=== PATIENT | male | born 1995 | race Asian ===

== ENCOUNTER 2018-08-31 11:53 | Inpatient (IN) | payer OTHER ==
[2018-08-31] MEDS ORDERED: NS 0.9% 1000 ML* 1,000 ML IV ONE (13:13)
[2018-08-31 13:43] LABS: Hematocrit 50 % (42-52); Mean Corpuscular HGB Conc 34 g/dl (31-36); Mean Corpuscular Hemoglobin 31 pg (27-31); Mean Corpuscular Volume 91 fL (80-94); Mean Platelet Volume 8.2 um3 (7.4-10.4); Platelet Count 97 10^3/ul (150-450); Red Blood Count 5.49 10^6/ul (4.00-5.40); Red Cell Distribution Width 13 % (10.5-15); White Blood Count 1.5 10^3/ul (3.5-10.8)
[2018-08-31] MEDS ORDERED: Acetaminophen TAB* 325 MG PO ONE (13:44)
[2018-08-31] MEDS ORDERED: Al Hydrox/Mg Hydrox/Simet LIQ* 30 ML UDC PO PRN (14:00)
[2018-08-31] MEDS ORDERED: Albuterol 2.5 MG/3 ML NEB.SOL* (0.083%) INH PRN (14:00)
[2018-08-31] MEDS ORDERED: Ondansetron INJ* 2 MG/ML VIAL IV PRN (14:00)
[2018-08-31] MEDS ORDERED: Acetaminophen TAB* 325 MG PO PRN (14:00)
[2018-08-31 14:20] LABS: ABS Basophils 0 10^3/ul (0-0.2); ABS Eosinophils 0 10^3/ul (0-0.6); ABS Lymphocytes 0.6 10^3/ul (1.0-4.8); ABS Monocytes 0.2 10^3/ul (0-0.8); ABS Neutrophils 0.7 10^3/ul (1.5-7.7); ABS Nucleated RBC 0 10^3/ul; Eosinophil % 0.7 % (0-6); Lymphocyte % 37.5 % (25-47); Nucleated Red Blood Cells % 0.6
--- NOTE | 2018-08-31 14:29 | RAD ---
Indication: Chest pain. Single frontal view of the chest performed at 1400 hours was reviewed. No prior study. No mediastinal shift is noted. Heart is of normal size and configuration. Lung horowitz appear clear. IMPRESSION: NO ACTIVE CARDIOPULMONARY DISEASE IS NOTED.
[2018-08-31] MEDS: NS 0.9% 1000 ML* 1,000 ML IV SCH ×2 (15:23→23:22)
[2018-08-31 15:46] LABS: RBC Parasite Smear No Parasites Seen (No Parasite)
--- NOTE | 2018-08-31 18:30 | HP ---
CC: [facility]* ADMISSION HISTORY AND PHYSICAL: DATE OF ADMISSION: 08/31/18 PATIENT OF ADMITTING HOSPITALIST: Dr. Maryam Damico.* (DICTATED BY ROSEY GARCIA) PRIMARY INFECTIOUS DISEASE PARALEGAL INTERNSHIP: Dr. Titus Mora. PRIMARY CARE PHYSICIAN: [facility]. CHIEF COMPLAINT: Fever and fatigue. HISTORY OF PRESENT ILLNESS: Mr. 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 The patient had a planned trip and spent about a week in [facility] and came back on 08/23/18. He started getting sick on the trip back, described it as generalized fatigue with accompanied fever and chills that became progressively worse, for which he went to see a doctor on 08/27/18. The patient had 2 other classmates that accompanied him to [facility] and had similar symptoms and both of them tested positive for dengue fever. The patient was followed by the [facility] office and was seen by Dr. Mora there. He had laboratory workup on a daily basis for the past 3 days showing evidence of neutropenia with decreased white count every day. He continued to have fever and chills as well as sore throat and occasional dysphagia, but denied any difficulty swallowing, nausea, vomiting, headache, chest pain, or any other associated symptoms. He also had a breakout of the rash that started on his extremities and became more prominent to his groin, described it as pruritic rash only when he scratched it. However, denies any heat or cold intolerance. He had malaria smear done yesterday and it revealed no evidence for any malaria organism. Given his ongoing symptoms, a call was made from [facility] office by Dr. Mora and spoke to a leading hospitalist Dr. Damico earlier today, case was presented and agreement was done to admit the patient directly to the medical floor with neutropenic isolation precaution and for further symptomatic management of what presumed to be dengue fever pending on laboratory workup. The patient on admission reports feeling better. He received some IV fluid hydration in the ED as well as some testing that revealed negative strep throat and negative influenza A and B titers. PAST MEDICAL HISTORY: Essentially unremarkable. He denies any history of lung , liver, heart, or kidney disease. PAST SURGICAL HISTORY: Significant for a lump removal from posterior neck that he described as being a lipoma excision. CURRENT MEDICATIONS: He does not take any medications at home. ALLERGIES: He has no known drug allergies. FAMILY HISTORY: Reviewed and noncontributory. SOCIAL HISTORY: The patient is a [employer] student, lives in an apartment in [facility] with roommates. He is a nonsmoker who drinks alcohol occasionally and denies illicit drug use. Both his parents are still live back home in [place] and they carry the healthcare proxy. He wishes to be a full code. REVIEW OF SYSTEMS: See HPI. Otherwise, 12 points of review of systems were performed and they were essentially negative. PHYSICAL EXAMINATION GENERAL: He is a pleasant healthy-appearing young male, in no acute distress or discomfort at the time of admission. VITAL SIGNS: Revealed temperature of 99.7, pulse of 92, oxygen of 99% on room air, and blood pressure of 128/85. HEENT: Head is normocephalic, atraumatic. Sclerae anicteric. PERRLA. EOMs intact. Oropharynx is dry. Pharynx with some erythema noted, but there was no exudate. NECK: Supple. Trachea midline. No thyromegaly noted. There is mild anterior cervical lymphadenopathy noted without tenderness on palpation. LUNGS: Clear to auscultation bilaterally. HEART: Regular rate and rhythm without rubs, murmurs, or gallops. BACK: With normal curvature. No CVA tenderness. ABDOMEN: Soft, nontender, and nondistended. There is no hernias, masses, or hepatosplenomegaly. RECTAL: Exam deferred at this time. EXTREMITIES: Without cyanosis, clubbing, or edema. SKIN: Warm and dry. There is a diffuse maculopapular rash noted more prominent on the extremities with some coalescence noted to the inner thighs and groin area. There is no evidence of secondary abrasions or cellulitis. Rash is blanchable and smooth to touch. NEUROLOGIC: He is awake, alert, and oriented x3. Handgrip is equal bilaterally. Tongue is midline and cranial nerves are grossly intact. LABORATORY WORKUP: His labs today repeated and showed white count of 1500, hemoglobin of 17, hematocrit of 50, and platelets of 97. Chemistry penal pending at the time of admission. Monospot is pending. Group A strep throat rapid test was negative and influenza A and B rapid antigen were also negative. IMPRESSION: A 22-year-old male who is previously healthy presented to the hospital with 5 days history of worsening fever, chills, generalized malaise, and fatigue after he had a trip to [facility] and had 2 other classmates having similar symptoms and previously diagnosed with dengue fever and will be admitted under hospitalist services for the following. 1. Generalized malaise and fatigue. The patient will be admitted for symptomatic management. He was given a bolus of IV fluid and we will continue IV fluid hydration as well as unrestricted diet. He appears to be stable and able to swallow despite his sore throat and occasional dysphagia. 2. Neutropenia and thrombocytopenia. It is unclear the etiology behind it, but it could be related to dengue fever. The patient will be admitted under neutropenia precautions and ID consultation was already discussed with Dr. Mora who will follow up with the patient while he is hospitalized. At this point, there was no indication for any antibiotics, just symptomatic management including a p.o. Tylenol as needed for fever or pain. I will also provide Chloraseptic lozenges as needed for his sore throat. 3. DVT prophylaxis. He is a low risk, will ambulate as tolerated. 4. Code status. He wishes to be a full code. 5. Disposition. Admit as an inpatient under hospitalist services for symptomatic management of weakness, fatigue with associated neutropenia and thrombocytopenia, rule out possible malaria versus dengue fever from recent trip to subtropical area and will follow up accordingly. TIME SPENT: About an hour spent admitting this patient, for which greater than 50% of this time on taking history and performing physical exam. I went on and discussed the case with my attending who agreed to plan of care and will follow accordingly. ROSEY GARCIA [id number]/[facility] #: [id number] AYDE
--- NOTE | 2018-08-31 21:29 | CONS ---
CONSULTATION REPORT: DATE OF CONSULT: 08/31/18 REQUESTING PROVIDER: ROSEY Roger CONSULTING SERVICE: Infectious Disease. REASON FOR CONSULT: Question of dengue virus. IMPRESSION: 1. Flu-like illness with leukopenia, thrombocytopenia, and rash a few days after return from [place] with extensive mosquito exposure. A number of his trip mates also had dengue virus infection, he likely does too. His malaria testing at [facility] has been negative so far. 2. Neutropenia due to #1. 3. Sore throat. RECOMMENDATIONS: IV fluid hydration as you are doing as well as recheck of a malaria smear. He had a blood culture sent and we will recheck a CBC in the morning. 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 He had extensive contact with mosquitoes there. A couple of the people went with him became sick with fever and were hospitalized in [place], diagnosed with dengue. A couple of days after returning, he developed fever, malaise, diffuse aches including severe joint aches and retroorbital headache and a couple of days later developed a rash, which was diffuse, red and itchy. He has been followed at [facility]. His white blood cell count has trended down over the last 2 to 3 days down to 1 today and his platelets were down to 80 ,000 and he had had more pain with swallowing and trouble keeping fluids down, so was admitted to the hospital today. I discussed the case with Dr. Landers this morning. He is febrile to 38.1, at this point hemodynamically stable. White count rechecked here is 1.5 and platelets are 97,000. He is receiving normal saline. He has no pain except for when he swallows some pain on the left side of his throat. He has had some Tylenol this morning, which helps with fever. A chest x-ray here was unremarkable. PAST MEDICAL HISTORY: None. ALLERGIES: No known drug allergies. MEDICATIONS: 1. Tylenol. 2. Albuterol as needed. 3. Zofran as needed. 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 No new sexual partners in the last month. FAMILY HISTORY: No recurrent infections. REVIEW OF SYSTEMS: All negative except as noted above to a 14-point review of systems. PHYSICAL EXAM: Vital Signs: Temperature is 38, heart rate 80, respiratory rate 16, blood pressure 133/80, oxygen saturation 98% on room air. In general, he is awake, not in distress, not diaphoretic. HEENT: There is no conjunctival hemorrhage. Oropharynx without lesions. Neck is supple without mass. Heart is regular rate and rhythm without murmurs, rubs, or gallops. Lungs are clear to auscultation bilaterally. Abdomen: Soft, nontender, nondistended. There are bowel sounds present. Skin: There are diffuse erythematous macules and coalescent patches of erythema, which are blanching. LABORATORY DATA: White blood cell count 1.5, hemoglobin 17, platelets 97. Creatinine is 1. CRP is 5. ALT is 22. Please see impressions and recommendations as outlined above. Thanks for asking me to see Mr. Jain in consultation. [id number]/[facility] #: [id number] MTDD
[2018-09-01 07:15] LABS: Hematocrit 44 % (42-52); Hemoglobin 15.2 g/dl (14.0-18.0); Mean Corpuscular HGB Conc 35 g/dl (31-36); Mean Corpuscular Hemoglobin 31 pg (27-31); Mean Corpuscular Volume 89 fL (80-94); Platelet Count 82 10^3/ul (150-450); Red Cell Distribution Width 12 % (10.5-15); White Blood Count 2.1 10^3/ul (3.5-10.8)
[2018-09-01 07:17] LABS: ABS Neutrophils 0.7 10^3/ul (1.5-7.7)
[2018-09-01] MEDS: NS 0.9% 1000 ML* 1,000 ML IV SCH ×2 (07:25→15:51)
[2018-09-01 07:42] LABS: ABS Basophils 0 10^3/ul (0-0.2); ABS Eosinophils 0.1 10^3/ul (0-0.6); ABS Monocytes 0.4 10^3/ul (0-0.8)
[2018-09-01 07:47] LABS: ABS Basophils 0 10^3/ul (0-0.2); ABS Neutrophils 0.8 10^3/ul (1.5-7.7); Monocytes % 13 % (0-7)
[2018-09-01 08:12] LABS: EGFR Non-African American 92.9 (>60)
--- NOTE | 2018-09-01 15:39 | PN ---
Subjective Date of Service: 09/01/18 Interval History: HOSPITALIST PROGRESS NOTE Patient seen and examined at bedside. Care reviewed and d/w Rima Damon RN. He feels a little better today. Throat is sore, but able to swallow. He thinks his rash is fading (not tender and not itchy). Family History: Unchanged from Admission Social History: Unchanged from Admission Past Medical History: Unchanged from Admission Objective Active Medications: Acetaminophen (Tylenol Tab*) 650 mg PO Q4H PRN PRN Reason: FEVER/PAIN Al Hydrox/Mg Hydrox/Simethicone (Maalox Plus*) 30 ml PO Q6H PRN PRN Reason: INDIGESTION Albuterol (Ventolin 2.5 Mg/3 Ml Neb.Verona*) 2.5 mg INH RT.[id number] AWAKE PRN PRN Reason: sob/wheezing Sodium Chloride (Ns 0.9% 1000 Ml*) 1,000 mls @ 125 mls/hr IV PER RATE PETER Last Admin: 08/31/18 23:22 Dose: 125 mls/hr Ondansetron HCl (Zofran Inj*) 4 mg IV Q4H PRN PRN Reason: NAUSEA/VOMITING Throat Lozenges (Chloraseptic Stephon*) 1 stephon PO Q4H PRN PRN Reason: SORE THROAT Vital Signs - 8 hr 09/01/18 09/01/18 09/01/18 08:00 10:16 10:22 Temperature 98.7 F Pulse Rate 66 64 Respiratory 17 12 Rate Blood Pressure 112/67 112/67 (mmHg) O2 Sat by Pulse 96 99 Oximetry 09/01/18 09/01/18 11:03 14:15 Temperature 98.1 F 97.2 F Pulse Rate 65 63 Respiratory 17 16 Rate Blood Pressure 117/69 119/72 (mmHg) O2 Sat by Pulse 99 99 Oximetry Oxygen Devices in Use Now: None Appearance: Pleasant young gentleman lying in bed in NAD. Eyes: No Scleral Icterus Ears/Nose/Mouth/Throat: Mucous Membranes Moist Neck: Trachea Midline Respiratory: Symmetrical Chest Expansion and Respiratory Effort, Clear to Auscultation Cardiovascular: NL Sounds; No Murmurs; No JVD, RRR Abdominal: NL Sounds; No Tenderness; No Distention Skin: - - Diffuse macular rash Neurological: Alert and Oriented x 3, NL Muscle Strength and Tone Result Diagrams: 09/01/18 06:42 09/01/18 06:39 Assess/Plan/Problems-Billing Assessment: Mr Jain is a 22yo M with NS PMH who presented with Flu-like illness with fever, rash, leukopenia, thrombocytopenia after a recent trip to [place], found to have probable Dengue fever. - Patient Problems (1) Flu-like symptoms Comment: - ID input appreciated - suspect Dengue fever. - Malaria smear negative. - Continue supportive care. - Neutropenia is improving. (2) DVT prophylaxis Comment: - Ambulation. (3) Full code status Status and Disposition: Inpatient. Possible d/c in AM if symptoms controlled.
[2018-09-01] MEDS: Benzocaine/Menthol LOZ* 1 LOZENGE PO PRN (15:52)
[2018-09-02] MEDS: NS 0.9% 1000 ML* 1,000 ML IV SCH ×2 (00:38→09:01)
[2018-09-02] MEDS: Benzocaine/Menthol LOZ* 1 LOZENGE PO PRN (07:07)
[2018-09-02 08:28] LABS: ABS Basophils 0 10^3/ul (0-0.2); Monocytes % 11 % (0-7)
[2018-09-02 09:07] LABS: Hematocrit 43 % (42-52); Hemoglobin 14.8 g/dl (14.0-18.0); Mean Corpuscular HGB Conc 35 g/dl (31-36); Mean Corpuscular Hemoglobin 31 pg (27-31); Mean Corpuscular Volume 90 fL (80-94); Mean Platelet Volume 8.2 um3 (7.4-10.4); Platelet Count 93 10^3/ul (150-450); Red Blood Count 4.76 10^6/ul (4.00-5.40); Red Cell Distribution Width 12 % (10.5-15); White Blood Count 3.1 10^3/ul (3.5-10.8)
[2018-09-02 09:17] VITALS: BP 101/60
--- NOTE | 2018-09-03 13:45 | DS ---
CC: Dr. Landers, [facility]; Dr. Mora DISCHARGE SUMMARY: DATE OF ADMISSION: 08/31/18 DATE OF DISCHARGE: 09/02/18 PRIMARY CARE PROVIDER: Dr. Landers, [facility] INFECTIOUS DISEASE SPECIALIST: Dr. Mora. DISCHARGE DIAGNOSES: Flu-like syndrome with fever, rash, leukopenia, thrombocytopenia, probably seco ndary to dengue fever. MEDICATION LIST: Benadryl 25 mg p.o. b.i.d. as needed for allergy. New medications: 1. Chloraseptic lozenges 1 lozenge p.o. q.4 hours sore throat. 2. Acetaminophen 650 mg p.o. t.i.d. p.r.n. pain or fever. HOSPITAL COURSE: Mr. Jain is a 22-year-old healthy male who recently returned from a trip to [facility] wi th complaints of fever, rash, sore throat. Many other students though went with him had similar comp laints. He was being followed by his primary care provider and Dr. Moar for possibility of dengu e fever or malaria. Multiple malaria smears were negative. He was having nausea and vomiting as outp atient and was admitted to help manage his symptoms. The patient was leukopenic with neutropenia and this is much improved on the day of discharge and his platelet count is also trending up. The patie nt remained afebrile while in the hospital and he is medically stable for discharge today. He had a macular rash that seems to be clearing up on discharge. DIET: Regular diet. ACTIVITY: As tolerated. DISPOSITION: To home. STATUS WHILE IN THE HOSPITAL: Inpatient. The patient thought to be medically stable for discharge today. Please keep in mind this is a summar ized version of this patient's hospital stay. If you need more information, please feel free to call me at [phone] or please obtain the full medical records. TIME SPENT: Approximately 40 minutes spent to complete this discharge. [id number]/[facility] #: [id number]
== END 2018-09-02 11:00 | disposition home or self-care (01) | DRG 866 ==
LOC: ED 11:53 → MED 13:49
PROVIDERS: ADMIT Internal Medicine; ATTEND Internal Medicine
DX: A90 Dengue fever [classical dengue] (principal); J11.1 Influenza due to unidentified influenza virus with other respiratory manifestations; D70.9 Neutropenia, unspecified; D69.6 Thrombocytopenia, unspecified; Z72.89 Other problems related to lifestyle
CPT/HCPCS: 36415; 71045; 80053; 83605; 85025; 85060; 85652; 86140; 86308; 87015; 87040; 87207; 87651; 99284; A9270-GY